=== PATIENT | female | born 1970 | race Caucasian/White ===

== ENCOUNTER → 2018-06-29 | Outpatient (CLI) | payer BC ==
[2018-06-29 10:57] LABS: ALBUMIN 4.7 g/dL (3.5-5.0); CALCIUM 9.8 mg/dL (8.4-10.2); TOTAL BILIRUBIN 0.7 mg/dL (0.2-1.3); TOTAL PROTEIN 7.8 g/dL (6.3-8.2)
== END ==
LOC: LAB 09:39
PROVIDERS: Internal Medicine
DX: E78.2 Mixed hyperlipidemia (principal); I10 Essential (primary) hypertension; E11.9 Type 2 diabetes mellitus without complications

== ENCOUNTER 2024-02-25 07:14 | Emergency (ER) | payer BC ==
[~2024-02-25] VITALS: Ht 154.9 cm; Wt 60.5 kg
[2024-02-25] MEDS ORDERED: Ondansetron 4 MG/2 ML VIAL IV ONE (07:45)
[2024-02-25] MEDS ORDERED: NS 1,000 ML IV SCH (07:45)
[2024-02-25 07:48] LABS: BASO # 0.02 K/mm3 (0.02-0.10); EOS # 0.01 K/mm3 (0.04-0.40); EOS % 0.1 % (1.0-5.0); HEMATOCRIT 40.4 % (37.0-47.0); HEMOGLOBIN 13.8 g/dL (12.5-16.0); LYMPH# 1.61 K/mm3 (1.50-4.00); MEAN CELL VOLUME 93 fl (78-100); MEAN CORPUSCULAR HEMOGLOBIN 32 pg (27-31); MEAN CORPUSCULAR HGB CONC 34 g/dL (33-37); MEAN PLATELET VOLUME 9.6 fl (7.4-10.4); MONO # 0.42 K/mm3 (0.20-0.80); NEU # 5.64 K/mm3 (1.40-6.50); PLATELET COUNT 288 K/mm3 (130-400); RED BLOOD COUNT 4.33 M/mm3 (4.10-5.30); RED CELL DISTRIBUTION WIDTH 13.1 % (11.5-14.5); WHITE BLOOD COUNT 7.8 K/mm3 (4.8-10.8)
[2024-02-25 07:57] LABS: ALBUMIN 4.5 g/dL (3.5-5.0); SODIUM 140 mmol/L (136-145)
[2024-02-25 07:58] LABS: CALCIUM 10.9 mg/dL (8.3-10.5)
[2024-02-25 07:59] LABS: GLUCOSE 176 mg/dL (65-105); TOTAL PROTEIN 8.2 g/dL (6.4-8.3)
[2024-02-25 08:00] LABS: CARBON DIOXIDE 22 mmol/L (22-29)
[2024-02-25 08:01] LABS: TOTAL BILIRUBIN 0.8 mg/dL (0.2-1.2)
[2024-02-25 08:05] LABS: AST-SGOT 28 U/L (5-34)
[2024-02-25 08:06] LABS: ALT/SGPT 29 U/L (0-55); LIPASE 22 U/L (8-78)
[2024-02-25 08:15] LABS: D-DIMER 0.78 mg/L FEU (0.15-0.50); TROPONIN-I < 0.030 ng/mL (0.00-0.033)
[2024-02-25 08:37] LABS: URINE WBC 0 /hpf (0-3)
[2024-02-25] MEDS ORDERED: MOUNJARO7.5 MG/0.5 SQ (08:40)
[2024-02-25] MEDS ORDERED: COZAAR 50MG50 MG/TAB PO (08:40)
[2024-02-25] MEDS ORDERED: PREDNISONE10 MG PO (08:41)
[2024-02-25] MEDS ORDERED: GLUCOPHAGE PO (08:43)
[2024-02-25] MEDS ORDERED: CYMBALTA20 MG PO (08:43)
[2024-02-25] MEDS ORDERED: PRAVASTATIN SOD20 MG PO (08:43)
[2024-02-25] MEDS ORDERED: ESTRACE0.5 MG PO (08:44)
[2024-02-25] MEDS ORDERED: diphenhydrAMINE 50 MG/ML 1 ML VIAL IV ONE (08:45)
[2024-02-25] MEDS ORDERED: Ketorolac 30 MG/ML VIAL IV ONE (08:45)
[2024-02-25] MEDS ORDERED: ZESTRIL2.5 M1 PO (08:45)
[2024-02-25] MEDS ORDERED: Meclizine 12.5 MG TAB PO ONE (08:45)
[2024-02-25] MEDS ORDERED: LEVOTHYROXINE13 MCG (08:46)
[2024-02-25] MEDS ORDERED: Iohexol 300 - 100 ML VIAL IV ONE (09:09)
[2024-02-25 09:15] LABS: URINE APPEARANCE CLEAR (CLEAR); URINE BILIRUBIN NEGATIVE (NEGATIVE); URINE BLOOD NEGATIVE (NEGATIVE); URINE COLOR YELLOW (YELLOW); URINE GLUCOSE NEGATIVE (NEGATIVE); URINE KETONE NEGATIVE (NEGATIVE); URINE LEUKOCYTE ESTERASE NEGATIVE (NEGATIVE); URINE NITRATE NEGATIVE (NEGATIVE); URINE PROTEIN(semi-quant) NEGATIVE (NEGATIVE)
[2024-02-25] MEDS ORDERED: GOOD NEIGHBOR M25 M1 PO (11:44)
[2024-02-25] MEDS ORDERED: PHENERGAN 25 TA25 MG PO (11:44)
[2024-02-25 12:30] VITALS: BP 117/80
== END 2024-02-25 12:41 | disposition home or self-care (01) ==
LOC: ED 07:14
PROVIDERS: Nurse Practitioner
DX: R10.84 Generalized abdominal pain (principal); R07.89 Other chest pain; R42 Dizziness and giddiness; R21 Rash and other nonspecific skin eruption
CPT/HCPCS: J1200; J1885; J7030; Q9967

== ENCOUNTER → 2024-07-27 | Outpatient (CLI) | payer BC ==
[~2024-07-27] MED LIST: COZAAR 50MG50 MG/TAB PO; CYMBALTA20 MG PO; ESTRACE0.5 MG PO; GLUCOPHAGE PO; GOOD NEIGHBOR M25 M1 PO; LEVOTHYROXINE13 MCG; MOUNJARO7.5 MG/0.5 SQ; PHENERGAN 25 TA25 MG PO; PRAVASTATIN SOD20 MG PO; PREDNISONE10 MG PO; ZESTRIL2.5 M1 PO
== END ==
LOC: RAD 10:03
DX: M25.511 Pain in right shoulder (principal)